=== PATIENT | female | born 1975 | race Caucasian/White ===

== ENCOUNTER → 2016-06-14 | Outpatient (CLI) | payer OTHER | LOC: FIMAGING 14:21 | PROVIDERS: ATTEND Midwife | DX: Z12.31 Encounter for screening mammogram for malignant neoplasm of breast (principal) | CPT/HCPCS: G0202 ==

== ENCOUNTER → 2016-07-27 | Outpatient (CLI) | payer OTHER | LOC: FIMAGING 14:20 | PROVIDERS: ATTEND Midwife | DX: E28.0 Estrogen excess (principal) ==

== ENCOUNTER → 2018-08-07 | Outpatient (CLI) | payer OTHER | LOC: BMCIMAGING 16:12 ==